=== PATIENT | female | born 1975 | race African-American/Black ===

== ENCOUNTER 2022-06-17 23:46 | Emergency (ER) | payer OTHER, SELFPAY ==
[2022-06-17 23:48] VITALS: BP 156/92; PULSE 88; RESP 17; TEMP 36.4; O2SAT 100; BMI 29.6
[2022-06-17 23:53] VITALS: PULSE 83; RESP 17; O2SAT 100
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
[2022-06-18] MEDS: HYDROcodone-acetaminophen 5-325 mg Tablet 1 TAB PO (00:48)
[2022-06-18 01:29] VITALS: BP 152/77; PULSE 84; RESP 16; O2SAT 100
[2022-06-18] MEDS: ketorolac 60 mg/2 mL INJ IM (01:54)
[2022-06-18] MEDS: cyclobenzaprine 10 mg Tablet PO (01:54)
[2022-06-18 01:59] VITALS: PULSE 84; RESP 16; O2SAT 100
== END 2022-06-18 01:58 | disposition home or self-care (01) ==
PROVIDERS: Emergency Provider Nurse Practitioner Family
DX: S16.1XXA Strain of muscle, fascia and tendon at neck level, initial encounter (principal); V89.2XXA Person injured in unspecified motor-vehicle accident, traffic, initial encounter
CPT/HCPCS: 70450; 72125; 96372; 99284; J1885